=== PATIENT | female | born 1980 | race Caucasian/White ===

== ENCOUNTER 2016-12-26 19:54 | Emergency (ER) | payer SELFPAY ==
[~2016-12-26] VITALS: Ht 162.6 cm; Wt 63.5 kg
--- NOTE | 2016-12-26 20:10 | NUR ---
Pt walked into ER c/o left ring finger laceration. Pt works at a [employer] and was cutting onions and lacerated left ring finger.
[2016-12-26] MEDS ORDERED: SILVER NITRATE APPLICATOR STICK EACH TP ONE ×2 (20:27→20:45)
[2016-12-26] MEDS ORDERED: TDAP DIPH,PERTUSS,TET VAC/PF 0.5 ML DISP.SYRIN IM ONE ×2 (20:41→20:45)
[2016-12-26] MEDS ORDERED: CEPHALEXIN MONOHYDRATE 500 MG CAPSULE PO ONE (20:45)
[2016-12-26] MEDS ORDERED: SODIUM BICARBONATE 4.2 % (NEUT) 5 ML VIAL TP ONE (20:45)
[2016-12-26] MEDS ORDERED: LIDOCAINE 1%-EPI 1:100,000 20 ML VIAL TP ONE (20:45)
[2016-12-26] MEDS ORDERED: CEPHALEXIN MONOHYDRATE 500 MG CAPSULE ONE (20:53)
--- NOTE | 2016-12-26 20:59 | NUR ---
Patient discharged to home in stable conditon with family taking Pt home. Written and verbal after care instructions given. Patient verbalizes understanding of instructions. Walked out of ER with steady gait
[2016-12-26 21:01] VITALS: BP 118/60
== END 2016-12-26 21:03 | disposition home or self-care (01) ==
LOC: ER 20:02
DX: S61.305A Unspecified open wound of left ring finger with damage to nail, initial encounter (principal); W26.0XXA Contact with knife, initial encounter; Y93.G3 Activity, cooking and baking; Y99.8 Other external cause status; Y92.89 Other specified places as the place of occurrence of the external cause
CPT/HCPCS: 90715; A4663; J3490